=== PATIENT | female | born 1985 | race Caucasian/White ===

== ENCOUNTER 2018-01-03 00:12 | Emergency (ER) | payer OTHER ==
[~2018-01-03] VITALS: Ht 170.2 cm; Wt 77.1 kg
[~2018-01-03 00:12] MED LIST: AMITRIPTYLINE H10 M1 PO; AMOXICILLIN 50500 M1 PO; CELEXA40 MG PO; PEPCID; VICODIN
[2018-01-03] MEDS ORDERED: ELETRIPTAN HBR40 MG (00:26)
[2018-01-03] MEDS ORDERED: SINGULAIR 10 MG10 MG (00:27)
[2018-01-03] MEDS ORDERED: TOPAMAX 25 MG T25 M1 (00:28)
[2018-01-03 02:32] VITALS: BP 135/79
--- NOTE | 2018-01-03 15:25 | EKG ---
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1985 Requested By: Mann Watts Order Number: [id number] MD: Schuyler Barnes Measurements Intervals [place] Rate: 55 P: 7 MN: 146 QRS: 24 QRSD: 95 T: 31 QT: 436 QTc: 417 Interpretive Statements Sinus rhythm Atrial premature complex Borderline T abnormalities, anterior leads No previous ECG available for comparison Electronically Signed On 01-03-2018 15:24:52 CDT by Schuyler Barnes [email or web address] <ELECTRONICALLY SIGNED> By: Schuyler Barnes MD, MERGED WITH [facility] 01/03/18 [id number] Schuyler Barnes MD, FACC /EPI
== END 2018-01-03 02:32 | disposition home or self-care (01) ==
LOC: M.ERS 00:12
DX: G43.109 Migraine with aura, not intractable, without status migrainosus (principal); R20.2 Paresthesia of skin

== ENCOUNTER 2020-07-05 13:53 | Emergency (ER) | payer OTHER ==
[~2020-07-05] VITALS: Ht 170.2 cm; Wt 99.8 kg
[~2020-07-05 13:53] MED LIST changes: +ELETRIPTAN HBR40 MG; +SINGULAIR 10 MG10 MG; +TOPAMAX 25 MG T25 M1
[2020-07-05] MEDS ORDERED: NORCO 5-325 TA1 EAC2 PO (15:36)
[2020-07-05 15:59] VITALS: BP 135/84
== END 2020-07-05 16:00 | disposition home or self-care (01) ==
LOC: M.ERS 13:53
DX: S01.511A Laceration without foreign body of lip, initial encounter (principal); S80.212A Abrasion, left knee, initial encounter; S80.211A Abrasion, right knee, initial encounter; G43.909 Migraine, unspecified, not intractable, without status migrainosus; Z90.49 Acquired absence of other specified parts of digestive tract; Z91.048 Other nonmedicinal substance allergy status; W10.8XXA Fall (on) (from) other stairs and steps, initial encounter; Y93.89 Activity, other specified; Y92.89 Other specified places as the place of occurrence of the external cause; Y99.8 Other external cause status

== ENCOUNTER 2020-08-15 16:53 | Emergency (ER) | payer OTHER ==
[~2020-08-15] VITALS: Ht 170.2 cm; Wt 99.8 kg
[~2020-08-15 16:53] MED LIST changes: +NORCO 5-325 TA1 EAC2 PO
[2020-08-15] MEDS ORDERED: NORCO 5-325 TA1 EAC2 PO (18:34)
[2020-08-15 18:45] VITALS: BP 123/82
== END 2020-08-15 18:45 | disposition home or self-care (01) ==
LOC: M.ERS 16:53
DX: S61.412A Laceration without foreign body of left hand, initial encounter (principal); G43.909 Migraine, unspecified, not intractable, without status migrainosus; W45.0XXA Nail entering through skin, initial encounter; Y93.89 Activity, other specified; Y92.89 Other specified places as the place of occurrence of the external cause; Y99.8 Other external cause status